=== PATIENT | male | born 1960 | race Two or more races ===

== ENCOUNTER 2025-07-14 08:18 | Observation (INO) ==
--- NOTE | 2025-06-19 10:04 | PAT Medication Instructions ---
Medication Instructions Date of Service June 19, 2025 Home Medications lamotrigine 200 mg tablet (Lamictal) 200 mg PO QAM lansoprazole 30 mg capsule,delayed release (Prevacid) 30 mg PO QAM naproxen 500 mg tablet (Naprosyn) 500 mg PO BID PRN Pain Medical Marijuana 1 dose PO UD ASK your surgeon for instructions naproxen 500 mg tablet (Naprosyn) 500 mg PO BID PRN Pain DO NOT take the morning of surgery Medical Marijuana 1 dose PO UD Take morning of surgery With a small sip of water, OTHERWISE NOTHING TO EAT OR DRINK AFTER MIDNIGHT: lamotrigine 200 mg tablet (Lamictal) 200 mg PO QAM lansoprazole 30 mg capsule,delayed release (Prevacid) 30 mg PO QAM Other Notes If you have any questions please call us at [phone] or [phone] or [phone] or [phone]
--- NOTE | 2025-06-20 13:06 | Anesthesiology Consultation ---
Date of Service June 20, 2025 Assessment & Plan (1) Encounter for pre-operative examination: Chart Review Chart Review: Acceptable Risk for Surgery and Patient seen in Pre Admission Testing Pt currently scheduled as 23 hours observation. If surgeon decides to change patient to Same Day Joint, patient would be acceptable risk for TKA, pending patient is motivated, has good support and surgeon's office completes [facility] Program preop requirements. Per PAT appt on 06/20/25, mild cough x 3 days with post nasal drip. No recent illness/disease exposures or recent illness/disease positive tests. Will leave to surgeon's discretion if preop Covid testing needed. Patient aware symptoms will need resolved by DOS Additional Notes (PAT visit was completed remotely while patient was in PAT office) History Surgery Operation Date: 07/14/25 08:00 Proposed Procedures p Robotic Assisted Right Total Knee Arthroplasty - Chidi Longo DO Height/Weight Height: 6 ft Weight: 78.7 kg Allergies Allergy/AdvReac Type Severity Reaction Status Date / Time No Known Allergies Allergy Verified 06/19/25 07:33 Medications Home Medications Medication Instructions Recorded Confirmed Last Taken lamotrigine 200 mg tablet 200 mg PO QAM 03/15/25 06/19/25 Unknown (Lamictal) lansoprazole 30 mg capsule,delayed 30 mg PO QAM 03/15/25 06/19/25 Unknown release (Prevacid) naproxen 500 mg tablet (Naprosyn) 500 mg PO BID PRN Pain 03/15/25 06/19/25 Unknown Medical Marijuana 1 dose PO UD 06/19/25 06/19/25 Unknown Past Medical History Medical History Arthritis GERD (gastroesophageal reflux disease) well controlled and stable History of COVID-19 2020- symptoms fully resolved Mood disorder Exercise / Class Metabolic Activity II 4-5 Yardwork/Stairs/Walk up hill (one flight of stairs - no chest pain or SOB) Past Family History Family History Mother Diabetes Past Surgical History Surgical History H/O Achilles tendon repair left History of cataract surgery bilat History of colonoscopy History of esophagogastroduodenoscopy (EGD) History of repair of ACL right History of tonsillectomy Past Anesthesia History No Hx of Anesthesia Complications and No Family Hx of Anesthesia Complications History of PONV No Hx of PONV and No Hx of Motion Sickness Social History Smoking Status: Former smoker Do You Dip or Chew Tobacco: No Smoking End Date: around 2004 Hx Alcohol Use: No Hx Substance Use: Yes substance use type: marijuana Substance Use Type Other:: med card > advised npo Review of Systems - Cough since 06/17/25- non productive. Post nasal drip. No fever or chills Patient denies chest pain, shortness of breath, dyspnea on exertion, wheezing, palpitations. No hx of seizures, stroke, ID, apnea/snoring. No hx of blood clots or blood transfusions Physical Exam Vital Signs VITALS (performed by [facility] [employer]) BP 155/99 (usually well controlled- usually 120/70s) P 76bpm TEMP 98.3 SP02 96% on RA Physical exam performed by Dr Thompson Constitutional no acute distress ENMT Mouth: no dentition abnormality Thyromental Distance: > or= 3.5 Finger Breadths Mallampati Class: I Permanent implants (pre-molars) Neck normal visual inspection Respiratory normal respiratory effort Auscultation: lungs clear to auscultation bilaterally Cardiovascular Rate/Rhythm: regular rate and regular rhythm Vessels: no carotid bruit Skin no rashes and no lesions Neurologic moves all extremities Motor/Sensory: no sensory deficit Psychiatric Orientation: alert and oriented x 3 Lab Results Anesthesia Preop Results Results Anesthesia Widget: WBC 4.99 K/ul (4.8-10.8) 06/20/25 Hgb 13.8 g/dL (14.0-18.0) L 06/20/25 Hct 40.5 % (42.0-52.0) L 06/20/25 Plt 280 K/uL (130-400) 06/20/25 Na 139 mmol/L (136-145) 06/20/25 K 4.2 mmol/L (3.5-5.1) 06/20/25 Cl 105 mmol/L (98-107) 06/20/25 CO2 27 mmol/L (21-32) 06/20/25 BUN 14 mg/dl (6-23) 06/20/25 Creat 1.22 mg/dl (0.6-1.4) 06/20/25 Glucose Level 96 mg/dl (70-99(Fasting)) 06/20/25 PT 10.8 Seconds (9.0-12.0) 06/20/25 PTT 30 Seconds (21-31) 06/20/25 INR 1.0 (0.9-1.1) 06/20/25 Blood Type O Positive 06/20/25 Antibody Screen NEGATIVE 06/20/25 Testing Electrocardiogram Date: 06/20/25 Poor data quality SB At 59bpm Otherwise normal EKG per cardio (Will leave to anesthesiologist's discretion DOS if repeat EKG DOS needed) Chest X-Ray Date: 06/20/25 Findings: + NAD
[~2025-07-14 08:18] MED LIST: BUPIVACAINE 0.25% PF 30 ML VIAL ONE; BUPIVACAINE 0.5 % 5 MG/1 ML PF 10ML VIAL ONE
[2025-07-14] MEDS ORDERED: MIDAZOLAM HCL 1 MG/ML 2ML VIAL ONE ×2 (08:24)
[2025-07-14] MEDS ORDERED: PROPOFOL IV EMULSION 10 MG/ML 20 ML VIAL IV ONE ×3 (08:24→10:52)
[2025-07-14] MEDS: LR 500ML BOLUS, THEN 15ML/HR IV SCH (08:54)
[2025-07-14] MEDS: LR 60ML/HR IV SCH (08:54)
[2025-07-14] MEDS: dexAMETHasone**PF** 10 MG/ML VIAL IV SCH (08:55)
[2025-07-14] MEDS ORDERED: ONDANSETRON INJ 2 MG/ML 2 ML VIAL IV PRN ×2 (08:55→14:46)
[2025-07-14] MEDS: FAMOTIDINE 20 MG TAB PO SCH (08:55)
[2025-07-14] MEDS ORDERED: ATROPINE SULFATE 0.1 MG/ML 10ML SYR IV PRN (08:55)
[2025-07-14] MEDS: GABAPENTIN 600 MG DOSE PO SCH (08:55)
[2025-07-14] MEDS: ACETAMINOPHEN 500 MG TAB PO SCH ×2 (08:55→15:26)
--- NOTE | 2025-07-14 08:59 | History & Physical Bridge Note ---
Date of Service July 14, 2025 History & Physical Bridge Note I have examined the patient, reviewed the History & Physical and in the interval since the performance of the History & Physical I have noted the following changes of clinical significance: no changes noted
[2025-07-14] MEDS: TRANEXAMIC ACID 1,000 MG **IV Pre-op IV SCH (09:42)
[2025-07-14] MEDS ORDERED: DexMEDEtomidine HCL IV 100 MCG/ML VIAL IV ONE (10:02)
[2025-07-14] MEDS ORDERED: KETAMINE HCL 10MG/ML SYR ONE (10:06)
[2025-07-14] MEDS: ORTHO JOINT ANESTHETIC ONE (10:24)
[2025-07-14] MEDS ORDERED: GLYCOPYRROLATE 0.2 MG/ML VIAL ONE (10:39)
[2025-07-14] MEDS ORDERED: ePHEDrine sulfate 50 MG/5 ML SYR ONE (10:48)
[2025-07-14] MEDS: ROPIV 0.5% 246mg, Ketorolac 30mg, EPINEPHrine 0.5mg in NSS INFIL SCH (10:52)
--- NOTE | 2025-07-14 11:05 | Operative Report ---
PG Post Operative Report Pre & Post Diagnosis Operation Date: 07/14/25 10:00 Pre-Op Diagnosis: Right Knee Osteoarthritis with retained hardware Post-Op Diagnosis: Right Knee Osteoarthritis with retained hardware I identified the patient and participated in the time-out.: Yes Procedure Operation Date: 07/14/25 10:00 Actual Procedures p Robotic Assisted Right Total Knee Arthroplasty(Right) with removal of hardware- Chidi Longo DO Surgeon Chidi Longo DO Indexer Rebekah Lehman PA-C Estimated Blood Loss 30 Findings Consistent with Post-Op Diagnosis Specimens Right femoral and tibial bone Description of Procedure Implants used: I used a Yevgeniy Persona total knee arthroplasty system with a size 11 PS narrow femur, E tibia, 32 patella, and a size 10 CPS polyethylene bearing. All components were press-fit into place. Jn arrived [facility] for the above procedure. He was seen in the preoperative holding area and the operative extremity was identified and signed. he was given a preoperative antibiotic, TXA, a spinal anesthetic and an adductor nerve block. He was taken back to the operating room and laid on the table in supine position. He was given basic sedation. The operative knee was then prepped and draped in sterile fashion. A timeout was done, and the patient and the operative extremity was properly identified. A midline incision was made directly over the patella. Dissection was taken down to the extensor mechanism. A medial parapatellar arthrotomy was used. The medial retinaculum was released and the fat pad was mostly excised. The knee was flexed and the ACL, PCL, and meniscus were removed. The medial side of the tibia was exposed. A metal ACL screw was easily identified. A screwdriver was used to remove the retained ACL screw. This completed the removal of hardware. The alignment of the knee replacement was assisted with a [employer] robotic knee. The femoral array was pinned in the distal femur and the tibial array was pinned using a percutaneous technique in the upper shaft of the tibia. The robot was appropriately calibrated and the structure of the knee was mapped out. The components were then manipulated on the screen to account for any malalignment and to assist in gap balancing. Once I was happy with the placement of the components on the screen, a distal femoral cutting guide was brought in place. The distal femur was then resected. The femur measured to be a size 11. A 4-in-1 cutting block was then put into place by the robot and 2 peg holes were drilled. The 4-in-1 cutting block was then impacted into place and anterior, posterior, and chamfer cuts were made. The cutting block was then brought down to the tibia and pinned into place. The proximal tibia was then resected. The posterior aspect of the knee was then opened up and any additional meniscus fragments and osteophytes were removed. The tibia measured to be a size E. The tibial plate was then placed in the appropriate rotation and the tibia was drilled and punched. Trial components were then placed. The patella was then everted and 9 mm was resected off the posterior aspect of the patella. The patella measured to be a size 32. 3 peg holes were then drilled. A trial patella was placed. A size 10 CPS polyethylene insert was then trialed. The knee was brought through a full range of motion and felt to be stable. Trial components were then removed. The surrounding soft tissues were injected with 100 cc of an orthopedic pain control cocktail. All components were then press-fit into place. The final polyethylene insert was then snapped into place. The tourniquet was deflated. Hemostasis was obtained. An Irrisept lavage was then done for 3 minutes. The joint was then irrigated with normal saline solution. The medial parapatellar arthrotomy was then closed with #1 Vicryl suture. The skin was closed with 2-0 Vicryl, 3-0V lock suture, and Erika Zipline. A soft compressive dressing was placed. He was then transferred to a hospital bed and taken to the postanesthesia care unit in stable condition. He tolerated the procedure well. Rebekah Lehman PA-C, was present for the entire procedure. He was critical for patient positioning, prepping, draping, retraction exposure, wound closure and application of sterile dressing. I attest to the content of the Intraoperative Record and any orders documented therein. Any exceptions are noted below.
[2025-07-14] MEDS ORDERED: PHENYLEPHRINE 100MCG/ML 5ML SYR ONE (11:06)
--- NOTE | 2025-07-14 12:12 | XRay Report ---
TWO VIEWS RIGHT KNEE CLINICAL HISTORY: Postoperative examination. FINDINGS: AP and crosstable lateral portable views of the right knee are obtained. A right knee arthr oplasty is in near anatomic alignment. There has been undersurface remodeling of the patella. No acut e fracture is seen. An anchor in the distal femur is consistent with previous ACL repair. Soft tissue edema and subcutaneous gas around the knee are expected postoperative findings. A calcified fabella is incidentally noted. IMPRESSION: Expected postoperative changes status post right knee arthroplasty. No acute fracture is seen. ACT 112: Negative or not required by law. Electronically signed by: Davi Barbosa M.D. 07/14/2025 12:11 PM
--- NOTE | 2025-07-14 13:46 | Anesthesiology Progress Note ---
Date of Service July 14, 2025 Anesthesia Post Procedure Vital Signs Vital Signs: Temp Pulse Resp BP Pulse Ox O2 Del Method O2 Flow Rate 07/14/25 13:30 72 16 117/75 96 Room Air 07/14/25 13:15 68 16 124/78 98 Room Air 07/14/25 13:00 70 18 111/74 98 Room Air 07/14/25 12:45 70 20 110/70 95 Room Air 07/14/25 12:30 72 17 104/73 96 Room Air 07/14/25 12:20 36.4 C L 73 18 111/70 97 Room Air 07/14/25 12:10 72 19 101/70 95 Room Air 07/14/25 12:00 76 20 111/74 99 Oxymask 5 07/14/25 11:50 74 14 107/65 100 Oxymask 5 07/14/25 11:40 71 13 102/71 100 Oxymask 9 07/14/25 11:31 36.2 C L 73 15 115/80 99 Oxymask 9 07/14/25 08:38 36.7 C 72 18 145/95 H 95 Room Air Transfer of Care Handoff Completed per policy Notes Mental Status: alert / awake / arousable and participated in evaluation Patient Amnestic to Procedure: Yes Nausea / Vomiting: adequately controlled Pain: adequately controlled Airway Patency, RR, SpO2: stable & adequate BP & HR: stable & adequate Hydration State: stable & adequate Neuraxial Anesthesia: was administered and sensory block is resolving Anesthetic Complications: no major complications apparent and Pt Satisfied with anesthetic care
[2025-07-14] MEDS ORDERED: diphenhydrAMINE Capsule 25 MG CAP PO PRN (14:46)
[2025-07-14] MEDS ORDERED: ALUMINUM/MAGNESIUM SUSP 30 ML UDC PO PRN (14:46)
[2025-07-14] MEDS ORDERED: NALOXONE HCL 0.4 MG/1 ML VIAL/CARP IV PRN (14:46)
[2025-07-14] MEDS ORDERED: MAGNESIUM HYDROXIDE SUSP 30 ML UDC PO PRN (14:46)
[2025-07-14] MEDS ORDERED: METOCLOPRAMIDE HCL INJ 5 MG/ML 2 ML VIAL IV PRN (14:46)
[2025-07-14] MEDS: SODIUM CHLORIDE 0.9% 1,000 ML IV SCH (15:25)
[2025-07-14] MEDS: KETOROLAC TROMETHAMINE 15 MG/ML VIAL IV SCH (15:26)
[2025-07-14] MEDS: ASPIRIN 81 MG ECTAB PO SCH (21:26)
[2025-07-14] MEDS: SENNA 8.6 MG TAB PO SCH (21:26)
[2025-07-14] MEDS: DOCUSATE SODIUM 100 MG CAP PO SCH (21:26)
[2025-07-15 07:14] VITALS: BP 148/84; PULSE 71; RESP 17; TEMP 97.3; O2SAT 97
--- NOTE | 2025-07-15 07:34 | Orthopedic Progress Note ---
Date of Service July 15, 2025 Assessment & Plan (1) Status post total right knee replacement not using cement: Overall he is doing fairly well. He is not having much pain in the right knee. He will be seen by physical therapy today for ambulation and range of motion exercises. The nursing staff can change his dressings after physical therapy. He is on aspirin for DVT prophylaxis. He can be discharged to home later today. He will follow-up with orthopedics in 2 weeks. Subjective Jn was seen and examined at bedside this morning. Overall he is doing very well. He is not having much pain in the right knee. He has been up and ambulating to the bathroom. He has no complaints.. Review of Systems All systems reviewed & are unremarkable except as noted in HPI & below. Physical Exam On physical exam of the right knee, the dressing is clean and dry. His leg is out in full extension. He has active dorsiflexion and plantarflexion of the r ight ankle.. Results & Data Results & Data Laboratory Results . Diagnostic Findings Postoperative x-rays of the right knee show the prosthesis to be in anatomic alignment without any evidence of fracture, his cage, or loosening.. PG Care Time/CCT Total # of Minutes Spent Total Time Spent with Patient: Total time spent is greater than 50% in coordination of care (as documented) at patient's floor/unit and/or counseling patient: Coding Level of Care Code 27085 Post Operative Follow-Up Diagnoses Status post total right knee replacement not using cement Z96.651
[2025-07-15] MEDS: lamoTRIgine 100 MG TAB PO SCH (07:48)
[2025-07-15] MEDS: MULTIVITAMIN TAB PO SCH (07:49)
== END 2025-07-15 11:26 | disposition home or self-care (01) ==
LOC: 3N 08:18 → ASU 08:18